=== PATIENT | male | born 1965 | race Caucasian/White ===

== ENCOUNTER 2017-05-26 00:02 | Emergency (ER) | payer SELFPAY ==
[2017-05-26 01:42] LABS: BASOPHILS % (AUTO) 1 % (0-3); EOSINOPHILS % (AUTO) 1 % (0-9); HEMATOCRIT 44 % (39-53); HEMOGLOBIN 15.9 gm/dl (13.5-17.7); LYMPHOCYTES % (AUTO) 20.5 % (10-50); MEAN CORPUSCULAR HEMOGLOBIN 31.9 pg (27.0-32.0); MEAN CORPUSCULAR HGB CONC 36.3 gm/dl (32.0-36.0); MEAN CORPUSCULAR VOLUME 88 fL (80-100); MONOCYTES % (AUTO) 5.7 % (0-12); NEUTROPHILS % (AUTO) 71.3 % (37-80)
[2017-05-26 02:11] LABS: APPEARANCE,URINE Clear; BILIRUBIN,URINE NEGATIVE (NEGATIVE); COLOR,URINE Yellow; GLUCOSE, URINE (UA) NEGATIVE (NEGATIVE); KETONES,URINE NEGATIVE (NEGATIVE); LEUKOCYTE ESTERASE ,URINE NEGATIVE (NEGATIVE); NITRATE,URINE NEGATIVE (NEGATIVE); OCCULT BLOOD,URINE NEGATIVE (NEG-TRACE); PH,URINE 6.5
[2017-05-26] MEDS ORDERED: TRAMADOL HYDROCHLORIDE 50 MG TAB PO ONE (02:11)
[2017-05-26] MEDS ORDERED: TEMAZEPAM 15MG 15 MG CAP PO PRN (02:11)
[2017-05-26 02:12] LABS: ALBUMIN 3.9 gm/dl (3.4-5.0); ALKALINE PHOSPHATASE 109 IU/L (46-116); ALT 32 IU/L (14-63); AST 19 IU/L (15-37); BILIRUBIN,TOTAL 0.4 mg/dl (0.2-1.0); CALCIUM 8.5 mg/dl (8.5-10.1); CARBON DIOXIDE 26.3 mEq/L (21-32); CHLORIDE 100 mMol/L (98-107); CREATININE 0.94 mg/dl (0.80-1.30); GLOM FILT RATE 84 mL/min (>60); GLUCOSE 105 mg/dl (74-106); POTASSIUM 3.7 mMol/L (3.5-5.1); SALICYLATE < 2.8 mg/dl (2.8-30.0); SODIUM 136 mMol/L (136-145); THYROID STIMULATING HORMONE 2.172 uIU/ml (0.358-3.740); TOTAL PROTEIN 7.3 gm/dl (6.4-8.2)
[2017-05-26 02:18] LABS: ACETAMINOPHEN < 2 ug/ml (10-30); ALCOHOL < 0.003 gm/dl (0.000-0.08)
[2017-05-26 02:23] LABS: AMPHETAMINES NEGATIVE (NEGATIVE); BACTERIA NEGATIVE (< 1+); BARBITUATES NEGATIVE (NEGATIVE); BENZODIAZEPINES NEGATIVE (NEGATIVE); CANNABINOL(THC) NEGATIVE (NEGATIVE); COCAINE(COC) NEGATIVE (NEGATIVE); CRYSTALS NEGATIVE (0-3 AVE/HPF); EPITHELIAL CELLS NEGATIVE (SQUAMOUS); METHADONE NEGATIVE (NEGATIVE); METHAMPHETAMINES NEGATIVE (NEGATIVE); OPIATES(OP13) NEGATIVE (NEGATIVE); OXYCODONE(OXY) NEGATIVE (NEGATIVE); PROPOXYPHENE(PPX) NEGATIVE (NEGATIVE); RBC,URINE NEG (0-3AV/HPF); TRICYCLIC ANTIDEPRESSANTS NEGATIVE (NEGATIVE); WBC,URINE NEG (0-5AV/HPF)
[2017-05-26 02:24] LABS: BLOOD UREA NITROGEN 15 mg/dl (7-18)
[2017-05-26] MEDS ORDERED: TRAMADOL HYDROCHLORIDE 50 MG TAB ONE (02:28)
[2017-05-26] MEDS ORDERED: TEMAZEPAM 15MG 15 MG CAP ONE (02:36)
[2017-05-26] MEDS ORDERED: IBUPROFEN 400 MG TAB PO ONE (02:39)
[2017-05-26] MEDS ORDERED: ACETAMINOPHEN 325 MG PO ONE (02:39)
[2017-05-26] MEDS ORDERED: ACETAMINOPHEN 325 MG ONE (03:44)
[2017-05-26] MEDS ORDERED: IBUPROFEN 400 MG TAB ONE (03:44)
[2017-05-26 06:04] VITALS: BP 146/88; PULSE 68; RESP 16; TEMP 98.1; O2SAT 96
== END 2017-05-26 09:35 | disposition short-term general hospital (02) | DRG 880 ==
LOC: ED 00:02
DX: R45.851 Suicidal ideations (principal); F32.9 Major depressive disorder, single episode, unspecified; F43.11 Post-traumatic stress disorder, acute; Y36.90XA War operations, unspecified, initial encounter
CPT/HCPCS: 36415; 80053; 80305; 80307; 81001; 84443; 85025; 99285; A9270-GY